=== PATIENT | female | born 1970 | race Caucasian/White ===

== ENCOUNTER → 2019-08-31 | Day surgery (SDC) | payer BC | END | disposition home or self-care (01) | LOC: JRADUS-SUR 11:52 | PROVIDERS: ATTEND Surgery | PROC: 0H9T3ZX Drainage of Right Breast, Percutaneous Approach, Diagnostic (ICD-10-PCS; principal; 2019-08-31) | PROC: BW40ZZZ Ultrasonography of Abdomen (ICD-10-PCS; 2019-08-31) | DX: N60.01 Solitary cyst of right breast (principal) | CPT/HCPCS: 76942; 76942-TC ==